=== PATIENT | male | born 1960 | race Caucasian/White ===

== ENCOUNTER 2018-08-16 15:13 | Outpatient (CLI) | payer BC, OTHER ==
--- NOTE | 2018-08-16 17:26 | MRI ---
MRI LUMBAR SPINE NONCONTRAST: 08/16/18 HISTORY: Low back pain with right leg radiculopathy. Prior surgery. FINDINGS: Conus medullaris has a normal appearance. Vertebral body height and alignment are maintained. There i s desiccation of the lowest three intervertebral discs. T12-L1, L1-2: Mild osteophytosis. Central canal and neural foramina are patent. L2-3: Disc space narrowing. Minimal disc bulge. Osteophytosis of the facets. Central canal and neural foramina are patent. L3-4: Mild posterior and lateral disc bulge. Osteophytosis of the facets with small amount of joint f luid. Central canal is patent. Mild to moderate stenosis of each neural foramen. L4-5: Mild posterior disc bulge. Osteophytosis of each facet with small amount of joint fluid. Thecal sac is patent. Moderate right and mild to moderate left foraminal stenoses. L5-S1: Postoperative decompression. Posterior central disc protrusion with slight caudal extension. S light compression of the ventral aspect of the thecal sac. Focal herniation of the disc to the right of midline extends inferiorly, partially compressing the right S1 nerve root origin. Degenerative bairon nges also result in moderate bilateral foraminal stenoses. IMPRESSION: Focal posterior disc herniation at the lumbosacral junction with inferior extension compressing the r ight S1 nerve root origin. Postoperative changes with posterior decompression are also present at the lumbosacral junction. Other multilevel degenerative changes throughout the lumbar spine, with foraminal stenosis as detaile d above. POS: OFF
== END 2018-08-16 15:14 | disposition home or self-care (01) ==
LOC: SCSMRI 15:13
PROVIDERS: ATTEND Orthopaedic Surgery
DX: M54.5 Low back pain (principal); M51.27 Other intervertebral disc displacement, lumbosacral region; M47.817 Spondylosis without myelopathy or radiculopathy, lumbosacral region; M48.061 Spinal stenosis, lumbar region without neurogenic claudication; M48.07 Spinal stenosis, lumbosacral region; Z98.890 Other specified postprocedural states
CPT/HCPCS: 72148

== ENCOUNTER 2019-02-08 14:39 | Outpatient (CLI) | payer BC ==
--- NOTE | 2019-02-08 15:06 | RAD ---
XR Chest Pa Lat STANDARD HISTORY: Cough COMPARISON: None FINDINGS: The heart size is normal. The lungs are well expanded without focal areas of consolidation, pneumothorax or pleural effusions. IMPRESSION: No radiographic evidence of acute cardiopulmonary process.
== END 2019-02-08 14:40 | disposition home or self-care (01) ==
LOC: SCSRAD 14:39
PROVIDERS: ATTEND Family Medicine
DX: R05 Cough (principal)
CPT/HCPCS: 71046

== ENCOUNTER 2019-02-16 09:30 | Outpatient (CLI) | payer BC ==
--- NOTE | 2019-02-16 10:58 | RAD ---
EXAM: XR Pelvis Minimum 3 Views PROVIDED CLINICAL HISTORY: Back pain with pain radiating to right hip. Symptoms been present for months. COMPARISON: None FINDINGS: No fracture or dislocation is seen. Degenerative changes are seen at the pubic symphysis. There is a calcification seen just lateral to the greater trochanter on the left. Surgical clips overlie the pelvis in addition to metallic densities probably related to overlying mesh material. Postsurgical ch anges related to laminectomy defect at L5 are noted. IMPRESSION: No acute osseous abnormality seen involving the pelvis.
== END 2019-02-16 09:31 | disposition home or self-care (01) ==
LOC: SCSRAD 09:30
PROVIDERS: ATTEND Orthopaedic Surgery
DX: M46.1 Sacroiliitis, not elsewhere classified (principal)
CPT/HCPCS: 72190

== ENCOUNTER 2019-04-05 08:55 | Outpatient (CLI) | payer BC ==
--- NOTE | 2019-04-05 09:29 | BD ---
EXAM: Bone densitometry using DEXA HISTORY: 59 yo male. Screening for osteoporosis FINDINGS: L1--bone mineral density 1.008 g/sq cm; T score -0.6 ; Z score -0.1 L2--bone mineral density 1.138 g/sq cm; T score 0.4 ; Z score 1.0 L3--bone mineral density 1.068 g/sq cm; T score -0.3 ; Z score 0.3 L4--bone mineral density 1.187 g/sq cm; T score 0.9 ; Z score 1.5 Total L1-L4--bone mineral density 1.102 g/sq cm; T score 0.1 ; Z score 0.7 Left femoral neck--bone mineral density0.774; T score -1.1 ; Z score -0.2 Total proximal left femur--bone mineral density 1.141; T score 0.7 ; Z score 1.1 The 10 year fracture risk for a major osteoporotic fracture is 4.7% and for a hip fracture is 0.3%. IMPRESSION: Osteopenia
== END 2019-04-05 08:56 | disposition home or self-care (01) ==
LOC: BICMAMMO 08:55
PROVIDERS: ATTEND Internal Medicine Endocrinology, Diabetes & Metabolism
DX: E21.3 Hyperparathyroidism, unspecified (principal); E83.52 Hypercalcemia; M85.852 Other specified disorders of bone density and structure, left thigh
CPT/HCPCS: 77080

== ENCOUNTER 2019-04-13 07:34 | Outpatient (CLI) | payer BC ==
--- NOTE | 2019-04-13 08:16 | ULT ---
THYROID ULTRASOUND: HISTORY: Hypercalcemia. COMPARISON: None. TECHNIQUE: Targeted sonographic imaging of the neck is performed to evaluate parathyroid glands. FINDINGS: There does not appear to be a large right parathyroid adenoma. In the left neck, there is a soft tissue echotexture, slightly irregular marginated measuring 1.7 x 1 .1 x 0.9 cm. Parathyroid adenoma is suspected given the overall size and location. Confirmation with pre- and postcontrast soft tissue neck CT utilizing parathyroid protocol is recommended. IMPRESSION: Soft tissue finding as above. Recommendation as above. Transcribed Date/Time: 04/13/2019 8:28 AM
--- NOTE | 2019-04-13 13:31 | NM ---
Nuclear medicine parathyroid scintigraphy and SPECT-CT. DATE: 04/13/2019 HISTORY: 59-year-old male with hypercalcemia. TECHNIQUE: IV injection of 27.5 mCi of technetium 99m-sestamibi. Planar scintigraphy of upper chest, neck, and head in 3 views immediately, and at 1 and 2 hour delays . SPECT in [address] covering same areas. SPECT-CT fusion images evaluated. FINDINGS: Unfortunately, there is severe streak artifact from right shoulder arthroplasty hardware across the n venkata, obscuring the region of lower poles of the thyroid gland and the areas of the anterior neck just inferior to the thyroid gland. This includes the region where the lesion was found on the thyroi d ultrasound earlier today. No area of increased uptake is located in that location. On the scintigraphic images, no parathyroid adenoma is identified. IMPRESSION: Negative
== END 2019-04-13 07:35 | disposition home or self-care (01) ==
LOC: ULT 07:34
PROVIDERS: ATTEND Internal Medicine Endocrinology, Diabetes & Metabolism
DX: E83.52 Hypercalcemia (principal); E21.3 Hyperparathyroidism, unspecified
CPT/HCPCS: 76536; 78072; A9500